=== PATIENT | female | born 1965 | race Caucasian/White ===

== ENCOUNTER 2018-01-20 05:39 | Day surgery (SDC) | payer BC ==
[~2018-01-20] VITALS: Ht 165.1 cm; Wt 86.3 kg
[~2018-01-20 05:39] MED LIST: PROVERA,CYCRIN10 MG PO; ZYRTEC10 M3 PO
[2018-01-20 06:58] VITALS: BP 112/75
[2018-01-20 09:35] VITALS: BP 120/77
[2018-01-20 10:09] VITALS: BP 130/78
== END 2018-01-20 10:13 | disposition home or self-care (01) ==
LOC: SDC 05:39
PROC: 0UJD8ZZ Inspection of Uterus and Cervix, Via Natural or Artificial Opening Endoscopic (ICD-10-PCS; principal; 2018-01-20)
PROC: 0UDB7ZX Extraction of Endometrium, Via Natural or Artificial Opening, Diagnostic (ICD-10-PCS; principal; 2018-01-20)
DX: N84.0 Polyp of corpus uteri (principal); N92.1 Excessive and frequent menstruation with irregular cycle; Q51.2 Other doubling of uterus; E66.9 Obesity, unspecified
CPT/HCPCS: 88305; J0131; J0330; J0690; J1100; J1885; J2250; J2405; J2765; J3010